=== PATIENT | female | born 1970 ===

== ENCOUNTER 2017-02-16 20:27 | Emergency (ER) | payer MEDICAID ==
[2017-02-16 20:31] VITALS: BP 129/81; PULSE 74; RESP 20; TEMP 97.8; O2SAT 100
[2017-02-16] MEDS ORDERED: TDAP Vaccine 0.5 mL Syr IM ONE (21:02)
[2017-02-16] MEDS ORDERED: Lidocaine 1% (10 ml) Inj INFIL STA (21:02)
[2017-02-16] MEDS ORDERED: Lidocaine 1% Inj (20ml) ONE (21:04)
--- NOTE | 2017-02-16 21:16 | ED PDOC ---
HPI: Skin/Bite Injury Time Seen by Provider: 02/16/17 20:50 Chief Complaint (Nursing): Abnormal Skin Integrity Chief Complaint (Provider): abnormal skin integrity History Per: Patient History/Exam Limitations: no limitations Onset/Duration Of Symptoms: Mins (prior to arrival ) Current Symptoms Are (Timing): Still Present Additional Complaint(s): Sadie Moon is a 46 year old female, with no pertinent medical history, who presents to the ED with complaints of a laceration she sustained to the left thumb prior to arrival. Pt reports opening a new knife and being cut by the knife while attempting to open the package. Pt denies any numbness, tingling or loss of sensation. Pt is unsure of last tetanus vaccination. PMD: none provided Past Medical History Reviewed: Historical Data, Nursing Documentation, Vital Signs Vital Signs: Last Vital Signs Temp 97.8 F 02/16/17 20:29 Pulse 74 02/16/17 20:29 Resp 20 02/16/17 20:29 BP 129/81 02/16/17 20:29 Pulse Ox 100 02/16/17 21:21 - Medical History PMH: Anxiety, Depression - Family History Family History: States: Unknown Family Hx - Immunization History Hx Tetanus Toxoid Vaccination: No Hx Influenza Vaccination: Yes Hx Pneumococcal Vaccination: No - Home Medications Home Medications: Ambulatory Orders Medication Instructions Recorded No Known Home Med 01/05/16 - Allergies Allergies/Adverse Reactions: Allergies Allergy/AdvReac Type Severity Reaction Status Date / Time No Known Allergies Allergy Unverified 01/05/16 09:58 Review of Systems ROS Statement: Except As Marked, All Systems Reviewed And Found Negative Musculoskeletal: Positive for: Hand Pain (left thumb laceration ) Neurological: Negative for: Numbness, Other (tingling ) Physical Exam - Reviewed Nursing Documentation Reviewed: Yes Vital Signs Reviewed: Yes - Physical Exam Appears: Positive for: Well, Non-toxic, No Acute Distress Skin: Negative for: Normal Color (1.0 cm by 0.5 cm superficial skin flap to the posterior aspect of the left thumb at the IP joint necrotic in appearance ) Eye Exam: Positive for: Normal appearance ENT: Positive for: Normal ENT Inspection Neck: Positive for: Normal, Painless ROM Respiratory: Negative for: Accessory Muscle Use, Respiratory Distress Extremity: Positive for: Normal ROM, Capillary Refill (< 3 seconds). Negative for: Deformity, Swelling Neurologic/Psych: Positive for: Alert, Oriented - ECG O2 Sat by Pulse Oximetry: 100 (RA) Pulse Ox Interpretation: Normal Medical Decision Making Medical Decision Making: Initial Impression: finger laceration Initial Plan: * Lidocaine HCL * boostrix vaccine Local anesthesia with 1cc lido without epi. Necrotic skin removed. Wound irrigated. Antibiotic ointment and dressing applied. Mild bleeding. Scribe Attestation: Documented by Sherine Watson, acting as a scribe for Xochilt Mcclendon PA-C. Provider Scribe Attestation: All medical record entries made by the Scribe were at my direction and personally dictated by me. I have reviewed the chart and agree that the record accurately reflects my personal performance of the history, physical exam, medical decision making, and the department course for this patient. I have also personally directed, reviewed, and agree with the discharge instructions and disposition. Disposition - Clinical Impression Clinical Impression: Skin avulsion, Tetanus toxoid vaccination administered at current visit - Patient ED Disposition Is Patient to be Admitted: No Counseled Patient/Family Regarding: Diagnosis, Need For Followup - Disposition Referrals: [facility] [Outside] Disposition: Routine/Home Disposition Time: 21:39 Condition: GOOD Additional Instructions: Do not remove dressing and keep dry for 24 hours. Keep clean and dry with think layer of antibiotic ointment. Instructions: Skin Avulsion (ED)
== END 2017-02-16 21:40 | disposition home or self-care (01) ==
LOC: H.ER 20:27
DX: S61.002A Unspecified open wound of left thumb without damage to nail, initial encounter (principal); W26.0XXA Contact with knife, initial encounter; Z23 Encounter for immunization